=== PATIENT | male | born 1980 | race Two or more races ===

== ENCOUNTER 2022-01-29 04:42 | Emergency (ER) | payer SELFPAY ==
[~2022-01-29] VITALS: Ht 177.8 cm; Wt 104.5 kg
[2022-01-29 04:52] VITALS: BP 147/96
== END 2022-01-29 05:02 | disposition left against medical advice (07) ==
LOC: EDBD 04:42 → ER 04:54
DX: F10.129 Alcohol abuse with intoxication, unspecified (principal); Z53.21 Procedure and treatment not carried out due to patient leaving prior to being seen by health care provider; Y90.9 Presence of alcohol in blood, level not specified